=== PATIENT | female | born 1975 | race African-American/Black ===

== ENCOUNTER 2023-10-22 00:56 | Emergency (ER) | payer SELFPAY ==
[~2023-10-22] VITALS: Ht 167.6 cm; Wt 64.0 kg
[2023-10-22] MEDS: SODIUM CHLORIDE 0.9% 1,000 ML IV ONE (01:15)
[2023-10-22] MEDS: MIDAZOLAM HCL 2 MG/2 ML VIAL IM ONE (01:30)
[2023-10-22 02:04] LABS: BASOPHILS % 0.7 % (0.0-2.0); CHLORIDE 110 mEq/L (98-107); EOSINOPHILS % 2.5 % (0.0-5.0); HEMATOCRIT. 35.7 % (36.0-48.0); HEMOGLOBIN. 11.9 g/dL (12.0-16.0); LYMPHOCYTES % 40.2 % (20.0-50.0); MEAN CORPUSCULAR HEMOGLOBIN 31.6 pg (28.0-32.0); MEAN CORPUSCULAR HGB CONC 33.3 g/dL (31.0-37.0); MEAN CORPUSCULAR VOLUME 94.9 fL (81.0-99.0); MEAN PLATELET VOLUME 8.9 fl (7.4-10.4); MONOCYTES % 6.7 % (2.0-8.0); NEUTROPHILS % 49.9 % (40.0-76.0); PLATELET 190 x1000/uL (130-400); POTASSIUM 3.3 mEq/L (3.5-5.1); RED BLOOD CELL COUNT 3.76 mill/uL (4.2-5.4); RED CELL DISTRIBUTION WIDTH 13.2 % (11.6-14.6); SODIUM 139 mEq/L (136-145)
[2023-10-22 02:05] LABS: CALCIUM 8.9 mg/dL (8.7-10.4); CARBON DIOXIDE 19 mEq/L (21-32)
[2023-10-22 02:10] LABS: CREATININE 0.8 mg/dL (0.6-1.0); ETHANOL BLOOD 210 mg/dL (<10); GLUCOSE 169 mg/dL (70-105); UREA NITROGEN BLOOD 6 mg/dL (9-23)
[2023-10-22 02:11] LABS: HCG SCREEN NEGATIVE
[2023-10-22 04:34] VITALS: TEMP 98
[2023-10-22 04:37] VITALS: BP 112/72; PULSE 80; RESP 16; O2SAT 97
== END 2023-10-22 05:03 | disposition home or self-care (01) ==
LOC: ER 00:56
DX: F10.129 Alcohol abuse with intoxication, unspecified (principal); F19.90 Other psychoactive substance use, unspecified, uncomplicated; R55 Syncope and collapse; Y90.7 Blood alcohol level of 200-239 mg/100 ml
CPT/HCPCS: 80048; 80320; 84703; 85025; 36415; 96360; 96361; 99284; J2250; J7030; Z7610; G0480